=== PATIENT | male | born 1965 | race Caucasian/White ===

== ENCOUNTER 2019-06-22 01:03 | Day surgery (SDC) | payer BC, SELFPAY ==
[2019-06-09 11:01] VITALS: BMI 29.9
[2019-06-22] VITALS (8 sets, daily range): BP systolic 122–146; BP diastolic 74–86; PULSE 65–90; RESP 12–20; TEMP 36.5–36.6; O2SAT 94–100
[2019-06-22] MEDS: IBUPROFEN IV 800 MG/200 ML 800 MG/200 ML BAG 400 MG IVPB (10:45)
[2019-06-22] MEDS: LACTATED RINGERS 1,000 ML 30 ML IV CONT ×2 (10:45→13:17)
--- NOTE | 2019-06-22 11:42 | WPDANESEPPF ---
Anes - Initial Pre Proc Eval Procedure: Operation Date: 06/22/19 12:00 Proposed Procedures p Ventral Hernia Repair with Mesh - Adi Hargrove DO Date/Time: 06/22/19 11:42 Surgeon: Adi Hargrove DO Pre Op Diagnosis: Ventral hernia Patient Data Age: 54 Gender: M Height: 6 ft 3 in Weight: 112.5 kg Last Vital Signs Temp 97.8 F 06/22/19 10:45 Pulse 76 06/22/19 10:45 Resp 18 06/22/19 10:45 BP 132/79 06/22/19 10:45 Pulse Ox 95 06/22/19 10:45 Allergies Allergy/AdvReac Type Severity Reaction Status Date / Time No Known Allergies Allergy Verified 06/22/19 10:55 Home Medications Medication Instructions Recorded Confirmed Type trazodone 150 mg tablet 150 mg PO HS tablet 03/31/19 06/22/19 History atorvastatin 10 mg tablet 10 mg PO DAILY #30 tablet 05/05/19 06/22/19 Rx buspirone 10 mg tablet 10 mg PO BID #60 tablet 05/05/19 06/22/19 Rx clonazepam 0.5 mg tablet 0.5 mg PO DAILY PRN #20 tablet 05/05/19 06/22/19 Rx losartan 25 mg tablet 25 mg PO DAILY #30 tablet 05/05/19 06/22/19 Rx amlodipine 10 mg tablet 10 mg PO DAILY #90 tablet 06/17/19 06/22/19 Rx Patient hx anesthesia problems: none Family hx anesthesia problems: none PMFSH Social History Social History Smoking packs per day: 1 Smoking cigarettes per day: 20.0 Years smoked: 30 Smoking pack-years: 30.00 Smoking status: Heavy tobacco smoker Tobacco type: cigarettes Alcohol intake: current Anes - Eval Final PreProcedure Day of Procedure 06/22/19 11:42 Patient weight: obese Heart: regular rate and rhythm Lungs: clear to auscultation Airway: Mallampati scale class II Neurological: alert and oriented Last oral intake: >/= 8 hours ASA classification: III Emergent: no Anesthetic plan: proceed Anesthesia type and monitoring: general LMA and standard monitoring Informed Consent: The patient's anesthetic plan and its attendant risks and benefits were discussed with the patient/family/POA. Questions were solicited and answers provided to the satisfaction of the patient/family/POA.
--- NOTE | 2019-06-22 11:46 | WPDHPUPDATE1 ---
History and Physical Update Update Date/Time: 06/22/19 11:46 History and Physical has been reviewed, including an updated exam of the patient. There are NO changes in the patient's condition. Risks, benefits, and alternatives have been discussed and questions answered. Patient agrees to proceed with procedure.
[2019-06-22] MEDS: ceFAZolin 2 GM/D5W 50 ML 2 GM/50 ML BAG IVPB (12:01)
[2019-06-22] MEDS: BUPIVACAINE/EPINEPHRINE 0.5% 30 ML VIAL INFILTRATE (12:27)
--- NOTE | 2019-06-22 13:10 | PM.PROC ---
Procedure Note - Detailed Date of procedure: 06/22/19 Pre-op diagnosis: Ventral hernia Post-op diagnosis: same Procedure performed: Ventral hernia repair with 8.6cm Parietex ventral patch Description of procedure: Procedure as well as risks, benefits, and alternatives were discussed with the patient. Written consent was obtained and placed in chart prior to procedure. Patient was brought back to surgical suite. He was placed supine on operating table. He was then intubated by Anesthesia Department. His abdomen was prepped and draped in sterile fashion using chlorhexidine prep. 0.5% bupivacaine with epinephrine was infiltrated locally around the operative area. A 4 cm curvilinear incision was made just superior to the umbilicus using a 15 blade scalpel. Electrocautery was used for hemostasis and for dissection down through the subcutaneous fat. Hernia sac was encountered and this was carefully freed up from surrounding subcutaneous fat using electrocautery. The hernia sac was freed up all the way down to the level of the fascia, and then it was transected using electrocautery. The hernia sac was excised and sent to the lab for pathology. The umbilical stalk was then lifted off of the fascia with electrocautery. The hernia defect was then measured. This was measuring approximately 25 mm. The decision was made to use an 8.6 cm Parietex ventral patch. The peritoneum was cleared under the fascia circumferentially around the hernia using blunt dissection and electrocautery. Once a wide enough pocket was created for the mesh, the mesh was then placed within this preperitoneal pocket and laid out flat centered on the hernia defect. The mesh appeared to be sitting in proper position. The mesh was then secured at the 4 corners using 0 Ethibond U-stitch trans fascial sutures. Once all 4 sutures were placed, the mesh was lifted up against the abdominal wall and appeared to be properly centered on the hernia defect. The fascia of the hernia defect was then reapproximated over the mesh using 0 Ethibond [id number] sutures. The 4 transfascial sutures were then tied down in place. The repair was inspected and appeared secure. 0.5% bupivacaine with epinephrine was infiltrated around the fascia and subcutaneous space. The umbilical stalk was then reapproximated to the fascia using a 3 0 Vicryl simple interrupted suture. The deep dermis was reapproximated using 3 0 Vicryl simple interrupted sutures, and then the skin was approximated using 4 Monocryl running subcuticular suture. Exofin glue was then applied on top. The patient was then awakened from anesthesia, extubated, and transferred to recovery. Implants: 8.6 cm Parietex Ventral Patch Anesthesia: local (0.5% bupivacaine with epinephrine) Surgeon: Adi Hargrove DO Estimated blood loss (mL): 5 Pathology: yes (Hernia sac) Complications: No immediate complications Condition: stable Disposition: same day Findings: This is a 54-year-old man who presented with a bulge near his umbilicus for the past several years. He noticed a small bulge in years past, but over the past couple months he noticed an increasing size and more symptoms with the hernia. He noticed pain with coughing or other physical activity. He was found to have a hernia near his umbilicus causing protrusion of his umbilical skin. Discussions were made with the patient about treatment options, and decision was made to proceed with ventral hernia repair with mesh. Ventral hernia repair was performed. The patient was found to have a 2.5 cm hernia located just superior to the umbilical stalk. The hernia sac was excised and sent to the lab for pathology. A preperitoneal pocket was created for mesh placement. The mesh was secured in place using 0 Ethibond U-stitch trans fascial sutures.
== END 2019-06-22 15:10 | disposition home or self-care (01) ==
PROVIDERS: PCP Internal Medicine; Visit Provider Surgery
PROC: 0WQF0ZZ Repair Abdominal Wall, Open Approach (ICD-10-PCS; CPT 49560; principal; 2019-06-22 12:00)
DX: K43.9 Ventral hernia without obstruction or gangrene (principal); I10 Essential (primary) hypertension; F41.8 Other specified anxiety disorders; F17.210 Nicotine dependence, cigarettes, uncomplicated; E66.9 Obesity, unspecified; Z68.31 Body mass index [BMI] 31.0-31.9, adult
CPT/HCPCS: 49560; 49568; 88300; A9270; C1781; J0690; J1100; J1741; J2250; J2405; J2704; J3010; J7120

== ENCOUNTER 2019-10-15 08:23 | Outpatient (CLI) | payer BC, SELFPAY ==
--- NOTE | ~2019-10-15 | XR_ITS ---
EXAMINATION: XR shoulder LT min 2V INDICATION: Left shoulder pain TECHNIQUE: Four views of the left shoulder are submitted. COMPARISON: None FINDINGS: Normal alignment. No fracture. Glenohumeral and acromioclavicular joint spaces are normal. Soft tissues are unremarkable. IMPRESSION: No acute osseous abnormality. Reviewed, dictated and finalized at location A.
== END 2019-10-15 08:24 | disposition home or self-care (01) ==
LOC: ANHIMG 08:25
PROVIDERS: PCP Internal Medicine; Visit Provider Clinical Nurse Specialist
DX: M25.519 Pain in unspecified shoulder (principal)
CPT/HCPCS: 73030

== ENCOUNTER 2019-10-22 14:30 | Outpatient (RCR) | payer BC, SELFPAY ==
[2019-09-21 12:33] VITALS: BP_SYST 95
--- NOTE | 2019-09-21 13:46 | PTOPEVAL ---
PHYSICAL THERAPY EVALUATION AND PLAN OF CARE 09-21-2019 The PT evaluation has been completed for the diagnosis of L shoulder impingement. The plan of treatment is for 2x/week for 3 weeks. Thank you for referring Scott Cui to [facility]. Please review, sign, date and return this plan of care [facility]. I agree with and certify that the following plan of care is medically necessary. Referring Physician Date Attending Provider: Evan Greenwood DO *PT Outpatient Evaluation Start: 09/21/19 12:33 Document 09/21/19 12:33 BINU (Rec: 09/21/19 13:25 BINU [id number]) Outpatient Past Medical History Past Medical History Source of Past Medical History Patient Neurological History Hx Neurological Disorders No Significant History Cardiovascular History Hx Hypercholesterolemia Yes: med control Hx Hypertension Yes: meds control Respiratory History Hx Respiratory Disorders No Significant History Gastrointestinal History Hx Hernia Yes: repair surgery Genitourinary History Hx Genitourinary Disorders No Significant History Musculoskeletal History Hx Arthritis Yes: neck and back Hx Back Pain Yes Hx Degenerative Disk Disease Yes: NECK Hx Spinal Surgery Yes: NERVE ABLATION ON 4 NERVES IN BACK Hematological History Hx Hematological Disorders No Significant History Endocrine History Hx Endocrine Disorders No Significant History HEENT History Hx Other HEENT Disorders Yes: SALIVARY GLAND EXCISION Integumentary History Hx Skin Disorders No Significant History Reproductive History Hx Reproductive Disorders No Significant History Psychosocial History Hx Anxiety Yes Hx Depression Yes Pain History History of Any Previous or Ongoing No Significant History Instance of Pain Anesthesia History Hx Anesthesia Reactions No Significant History Evaluation Information Problem Diagnosis impingement L shoulder Onset few months ago Subjective Information gradual increase in shoulder Query Text:As Reported By Patient/ pain;no trauma or injury to Family shoulder; no imaging or testing performed; Previous Treatments Previous Treatments For This Problem previous PT for back pain, not for shoulder pain Prior Level of Function Activity Level (Last 3 Months) Occupation route sales trainee;travels,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
--- NOTE | 2019-10-13 16:13 | PTOPEVAL ---
PHYSICAL THERAPY RE-EVALUATION AND UPDATED PLAN OF CARE 10-13-2019 Mr. Cui has received 7 PT sessions, from September 20 to today, for the diagnosis of L shoulder impingement. Compared to the initial evaluation: pain rating is worse at both the lowest and highest rating; reported sleeping tolerance is worse; L shoulder AROM and strength have improved with flexion, abduction and ER, with IR the same; he has been educated on a home exercise program and posture/position of his shoulder. Jim expressed concern about the increasing pain and is to call for a follow up dr appointment. PT is to continue treatments, 2x/week for 3 weeks. Thank you for referring Scott Cui to [facility] [place]. Please review, sign, date and return this plan of care BILL. I agree with and certify that the following plan of care is medically necessary. Referring Physician Date Attending Provider: Evan Greenwood, Document 10/13/19 15:30 BINU (Rec: 10/13/19 16:13 BINU [id number]) cant History Pain Assessment Timing of Pain Assessment Timing of Pain Assessment Assessment Pain Scale Pain Scale Used Numeric (1 - 10) Self Report Pain Assessment Left Shoulder(s) Reported Pain Level 6 Pain Description Sharp Other Pain Description drilling pain into shoulder Lowest Pain Intensity 3 Greatest Pain Intensity 9 Pain Aggravating Factors Exercise/Activity Other Pain Aggravating Factors sleeping awaken 6x/night due pain; cannot lie on L shoulder Pain Relief Interventions Used By Heat,Ice,Inactivity/Rest Patient Other Alleviating Interventions taking over the counter meds past 3 days--not made difference Additional Pain Comments past 4 days sh is worse;dry needling helped some;skin irritated with tape; Pain Score Pain Score 6: Self Report Upper Extremity Range of Motion General Upper Extremity Range of Motion Gross Upper Extremity Range of Motion standing L shouldeer: flexion Comments 125'; abduction 85'; IR-reach behind back, active palm to buttock/ with stretching, palm to sacrum; ER- reach palm to back of head; most pain with IR; supine with stretch: flexion 130'; abduction 85'; shoulder ER 35' wtih shoulder abduction 40'; Upper Extremity Muscle Strength Testing General Upper Extremity Strength Gross Upper Extremity Strength Comments standing L shoulder flexion with 4# hand wt, full ROM x 10 reps; shoulder abduction 2# x 10 reps; shoulder ER with elbow
--- NOTE | 2019-10-27 11:01 | PCPTNOTE ---
Patient called & cancelled all scheduled appointment this date due to seeing an Orthopedic doctor for his shoulder.
--- NOTE | 2019-10-28 10:39 | PCPTNOTE ---
called pt, he stated his dr told him to stop PT, going to see ortho , November 15. His MRI showed labral tear. Discussed with him to continue home exercises, stretching to keep the range he has gained. And his chart will be kept open,if ortho wants him to have further PT, will need new order.
--- NOTE | 2019-12-08 11:50 | PCPTNOTE ---
PHYSICAL THERAPY DISCHARGE 12-08-2019 Attending Provider: Evan Greenwood DO Patient:Scott Cui Date of :1965 Jim has not returned for any further treatments since 10/22/2019. He called 10/28/19, and stated has had an orthopedic referral and to have an MRI of his shoulder. He has not returned for any further treatments, therefore he will be discharged at this time. Refer to his reevaluation dated 10/13/19 for his status. The goals were not addressed. Thank you for referring Mr. Cui to [facility]. Please review, sign, date and return this discharge summary BILL. I have been updated about the patient's current status and I agree with discharge from the above service at this time. Referring Physician Date
== END 2019-12-09 08:32 | disposition home or self-care (01) ==
LOC: ANHPT 14:30
PROVIDERS: PCP Internal Medicine; Visit Provider Internal Medicine
DX: M25.519 Pain in unspecified shoulder (principal); M75.42 Impingement syndrome of left shoulder
CPT/HCPCS: 97014; 97035; 97110; 97140; 97161; G0283

== ENCOUNTER 2019-10-23 18:34 | Outpatient (CLI) | payer BC, SELFPAY ==
--- NOTE | ~2019-10-23 | MR_ITS ---
EXAMINATION: MR shoulder LT wo con DATE: 10/23/2019 19:25 INDICATION: Left shoulder pain TECHNIQUE: Magnetic resonance imaging (MRI) of the left shoulder was performed without intravenous co ntrast. Sequences included axial PD-weighted FS FSE, coronal oblique PD-weighted FS FSE, coronal obli que T2-weighted FS FSE, sagittal PD-weighted FS FSE, and sagittal T1-weighted SE. COMPARISON: None. FINDINGS: Coracoacromial arch: The acromion undersurface is curved in morphology (type II). The coracoacromial ligament is normal. M ild acromioclavicular osteoarthritis. Rotator cuff: Mild supraspinatus and infraspinatus tendinopathy without discrete tear. The teres minor and subscapu rodney tendons are normal. Normal rotator cuff muscle bulk and signal. Biceps tendon, glenoid labrum and glenohumeral cartilage: Long head of the biceps tendon is normal. Tear versus chronic degeneration at the anteroinferior johnny oid labrum which appears thickened increased signal and irregular margins. Remainder of the labrum ap pears normal. Glenohumeral cartilage is normal. Fluid: Physiologic amount of fluid in the glenohumeral joint and biceps tendon sheath. No loose osteochondra l bodies. No abnormal fluid signal in the subacromial/subdeltoid bursa to suggest mild bursitis. Bones: Normal marrow signal with no edema, fracture or abnormal marrow replacing process. There is prominent thickening and mild increased signal of the joint capsule at the axillary recess as well as anterior inferior glenohumeral ligament. There is also increased amorphous soft tissue density at the rotator interval situated between the normal-appearing superior glenohumeral and coracohumeral ligaments. Th renato findings and be seen in the setting of adhesive capsulitis which is a clinical diagnosis. IMPRESSION: 1. Increased soft tissue at the rotator cuff interval and thickening of the joint capsule at the axil nita recess and anteroinferior glenohumeral ligament which can be seen in the setting of adhesive cap sulitis which is a clinical diagnosis. 2. Tear/degeneration at the anteroinferior glenoid labrum. 3. Mild supraspinatus and infraspinatus tendinopathy without discrete tear. Reviewed, dictated and finalized at location A. IMPRESSION: 1. Increased soft tissue at the rotator cuff interval and thickening of the melissa nt capsule at the axillary recess and anteroinferior glenohumeral ligament whic h can be seen in the setting of adhesive capsulitis which is a clinical diagnos is. 2. Tear/degeneration at the anteroinferior glenoid labrum. 3. Mild supraspinatus and infraspinatus tendinopathy without discrete tear.
== END 2019-10-23 18:35 | disposition home or self-care (01) ==
LOC: ANHIMG 18:34
PROVIDERS: PCP Internal Medicine; Visit Provider Clinical Nurse Specialist
DX: M25.519 Pain in unspecified shoulder (principal); S43.432A Superior glenoid labrum lesion of left shoulder, initial encounter; S46.012A Strain of muscle(s) and tendon(s) of the rotator cuff of left shoulder, initial encounter
CPT/HCPCS: 73221

== ENCOUNTER 2021-05-02 11:07 | Outpatient (CLI) | payer OTHER, SELFPAY ==
--- NOTE | ~2021-05-02 | US_ITS ---
EXAMINATION: US abdomen limited EXAM DATE: 05/02/2021 11:49 INDICATION: R74.01 - Elevation of levels of liver transaminase levels. TECHNIQUE: Multiple grayscale and Doppler images of the abdomen right upper quadrant were obtained (b y a technologist who performed the scan) and subsequently reviewed. There is no prior study for bruno alvarez. FINDINGS: The pancreatic head and body are normal in appearance. The pancreatic tail is not visualized. There is echogenic liver parenchyma with poor penetration, hepatic steatosis. There are no focal liver le sions identified. There is no evidence of intrahepatic biliary duct dilation. Portal venous flow w as seen in the hepatopedal, normal direction and has normal Doppler waveform. No right-sided hydrone phrosis. Common bile duct measures 4 mm, which is normal. The gallbladder wall is normal in thickness, with ex pected amount of distention. No sonographic evidence of pericholecystic fluid. There is no cholelit hiases. Technologist performing exam reports patient did not demonstrate sonographic Cordero's sign. Please note that this sign is less reliable in patients who have received pain medication. IMPRESSION: 1. Hepatic steatosis. Reviewed, dictated and finalized at location B. LING MONITOR IMPRESSION: 1. Hepatic steatosis.
== END 2021-05-02 11:08 | disposition home or self-care (01) ==
PROVIDERS: PCP Internal Medicine; Visit Provider Nurse Practitioner
DX: R74.01 Elevation of levels of liver transaminase levels (principal); K76.0 Fatty (change of) liver, not elsewhere classified
CPT/HCPCS: 76705